=== PATIENT | female | born 1965 | race Caucasian/White ===

== ENCOUNTER 2017-06-13 11:55 | Observation (INO) | payer OTHER ==
[~2017-06-13] VITALS: Ht 177.8 cm; Wt 126.0 kg
[~2017-06-13 11:55] MED LIST: ALENDRONATE SOD70 MG PO; BUSPAR15 MG PO; CATAPRES0.1 MG PO; CHLORDIAZEPOXID25 MG; CLEOCIN300 MG; CLINDAMYCIN HC300 MG PO; DULOXETINE HCL30 MG PO; FERROUS SULFAT324 MG; FUROSEMIDE20 MG; FUROSEMIDE40 MG; FUROSEMIDE40 MG PO; HYDROCODON-ACE1 EAC7 PO; IBUPROFEN600 MG; IBUPROFEN600 MG PO; K-DUR20 MEQ PO; KLOR-CON20 MEQ PO; LEVAQUIN750 MG PO; Librium PO; METHADONE H5 MG/5 ML PO; METHADONE10 MG PO; Motrin PO; NAPROXEN SODIU550 MG; OMEPRAZOLE20 MG; OMEPRAZOLE20 MG PO; OYSCO-500500 MG PO; PRED FORTE100 DROP/5; PRED FORTE100 DROP/5 BOTH EYES; PRILOSEC20 MG PO; PROMETHAZINE HC25 M1 PO; THIAMINE HCL100 MG; TIMOPTIC-0100 DROP/1 BOTH EYES; TORADOL10 MG PO; TRAMADOL HCL50 MG; TRAZODONE HCL50 MG PO; WELLBUTRIN XL300 MG PO; XALATAN2.5 ML BOTH EYES; ZOFRAN4 MG PO
[2017-06-13 13:03] LABS: BASOPHIL (%) 0.7 % (0-1); BASOPHIL COUNT 0.1 K/uL (0-0.1); EOSINOPHIL (%) 1.2 % (0-5); EOSINOPHIL COUNT 0.1 K/uL (0-0.3); HEMATOCRIT 42.2 % (36.0-46.0); HEMOGLOBIN 14.5 G/DL (11.9-15.5); IMMATURE GRANULOCYTE (%) 0.3 % (0.0-0.7); LYMPHOCYTE (%) 15.4 % (15-42); LYMPHOCYTE COUNT 1.1 K/uL (1.0-2.8); MCH 28.9 PG (29.0-34.0); MCHC 34.4 G/DL (30.0-36.0); MCV 84.1 FL (83-99); MONOCYTE (%) 5.6 % (3-12); MONOCYTE COUNT 0.4 K/uL (0-0.8); NEUTROPHIL (%) 76.8 % (45-76); NEUTROPHIL COUNT 5.3 K/uL (1.8-6.4); PLATELET COUNT 270 K/uL (156-360); RBC DIS.WIDTH-CV 13.6 % (11.8-14.6); RBC DIS.WIDTH-SD 41.6 % (39-53); RED BLOOD COUNT 5.02 M/uL (3.80-5.20)
[2017-06-13 13:09] LABS: INTER. NORMALIZED RATIO 1.9
[2017-06-13 13:14] LABS: CHLORIDE 104 mEq/L (99-109); POTASSIUM 4.6 mEq/L (3.7-5.4); SODIUM 140 mEq/L (136-147)
[2017-06-13 13:15] LABS: GLUCOSE 84 mg/dL (70-99)
[2017-06-13 13:19] LABS: CREATININE 0.8 mg/dL (0.6-1.3); GFR ESTIMATE (CALCULATED) > 59 mL/min/
[2017-06-13 13:20] LABS: UREA NITROGEN (BUN) 5 mg/dL (9-23)
[2017-06-13 13:26] LABS: TROP-I INTERPRETATION NEGATIVE; TROPONIN-I < 0.01 ng/mL (0.0-0.30)
[2017-06-13] MEDS ORDERED: SINEQUAN100 MG PO (16:09)
[2017-06-13] MEDS ORDERED: XARELTO20 MG PO (16:09)
[2017-06-13] MEDS ORDERED: LAMICTAL25 MG PO (16:10)
[2017-06-13] MEDS ORDERED: SAPHRIS10 MG SL (16:10)
[2017-06-13 17:42] VITALS: BP 142/88
[2017-06-13 20:00] VITALS: BP 125/74
[2017-06-13 23:32] VITALS: BP 117/74
[2017-06-14 04:22] VITALS: BP 123/70
[2017-06-14 06:22] LABS: HEMATOCRIT 41.7 % (36.0-46.0); MCH 28.1 PG (29.0-34.0); MCHC 33.6 G/DL (30.0-36.0); MCV 83.6 FL (83-99); PLATELET COUNT 248 K/uL (156-360); RBC DIS.WIDTH-CV 13.6 % (11.8-14.6); RBC DIS.WIDTH-SD 41.1 % (39-53); RED BLOOD COUNT 4.99 M/uL (3.80-5.20); WHITE BLOOD COUNT 4.8 K/uL (4.1-10.2)
[2017-06-14 06:53] LABS: CHLORIDE 105 MEQ/L (99-109); CREATININE 0.7 MG/DL (0.6-1.3); GFR ESTIMATE (CALCULATED) > 59 mL/min/; POTASSIUM 4.3 MEQ/L (3.7-5.4); SODIUM 138 MEQ/L (136-147); UREA NITROGEN (BUN) 6 mg/dL (9-23)
[2017-06-14 06:55] LABS: GLUCOSE 152 mg/dL (70-99)
[2017-06-14 08:30] VITALS: BP 132/59
[2017-06-14 12:31] VITALS: BP 142/66
[2017-06-14 16:31] VITALS: BP 130/66
[2017-06-14 23:45] VITALS: BP 107/57
[2017-06-15 03:53] VITALS: BP 103/55
[2017-06-15 05:14] LABS: BASOPHIL (%) 0.2 % (0-1); EOSINOPHIL (%) 0 % (0-5); HEMATOCRIT 40.2 % (36.0-46.0); HEMOGLOBIN 13.3 G/DL (11.9-15.5); IMMATURE GRANULOCYTE (%) 0.4 % (0.0-0.7); LYMPHOCYTE (%) 3.6 % (15-42); LYMPHOCYTE COUNT 0.4 K/uL (1.0-2.8); MCH 27.9 PG (29.0-34.0); MCHC 33.1 G/DL (30.0-36.0); MCV 84.3 FL (83-99); MONOCYTE (%) 2.2 % (3-12); MONOCYTE COUNT 0.3 K/uL (0-0.8); NEUTROPHIL (%) 93.6 % (45-76); NEUTROPHIL COUNT 11.1 K/uL (1.8-6.4); PLATELET COUNT 266 K/uL (156-360); RED BLOOD COUNT 4.77 M/uL (3.80-5.20); WHITE BLOOD COUNT 11.8 K/uL (4.1-10.2)
[2017-06-15 05:49] LABS: CHLORIDE 104 MEQ/L (99-109); CREATININE 0.7 MG/DL (0.6-1.3); GFR ESTIMATE (CALCULATED) > 59 mL/min/; GLUCOSE 162 mg/dL (70-99); POTASSIUM 4.1 MEQ/L (3.7-5.4); SODIUM 140 MEQ/L (136-147); UREA NITROGEN (BUN) 9 mg/dL (9-23)
[2017-06-15 07:28] VITALS: BP 125/77
[2017-06-15] MEDS ORDERED: ZITHROMAX500 MG PO (08:28)
[2017-06-15] MEDS ORDERED: PREDNISONE10 MG PO (08:29)
[2017-06-15] MEDS ORDERED: MUCINEX1200 MG PO (08:30)
== END 2017-06-15 09:53 | disposition home or self-care (01) ==
LOC: EME 11:55 → EDOF 15:56 → ENRESERV 15:58 → 4SOUTH 17:12 → ENPENDDIS 06-15 → 4SOUTH 06-15 09:53
PROVIDERS: Emergency Medicine; Internal Medicine; Student in an Organized Health Care Education/Training Program
DX: J44.0 Chronic obstructive pulmonary disease with (acute) lower respiratory infection (principal); J44.1 Chronic obstructive pulmonary disease with (acute) exacerbation; J20.9 Acute bronchitis, unspecified; R09.02 Hypoxemia; Z86.718 Personal history of other venous thrombosis and embolism; Z79.01 Long term (current) use of anticoagulants; F31.9 Bipolar disorder, unspecified; F17.210 Nicotine dependence, cigarettes, uncomplicated; F12.90 Cannabis use, unspecified, uncomplicated; E78.5 Hyperlipidemia, unspecified; F41.9 Anxiety disorder, unspecified; Z98.84 Bariatric surgery status; Z90.49 Acquired absence of other specified parts of digestive tract; Z87.11 Personal history of peptic ulcer disease; F11.11 Opioid abuse, in remission; F10.11 Alcohol abuse, in remission; Z80.1 Family history of malignant neoplasm of trachea, bronchus and lung; Z82.49 Family history of ischemic heart disease and other diseases of the circulatory system; Z88.0 Allergy status to penicillin
CPT/HCPCS: 71045; 71275; 80048; 84484; 85025; 85027; 85610; 85730; 87070; 87077; 87186; 87205; 87449; 87502; 93005; 94640; 94640 76; 94799; 99202; 99281; 99285; G0378; J0456; J2930; J7030